=== PATIENT | male | born 1955 | race Caucasian/White ===

== ENCOUNTER → 2017-07-16 | Outpatient (CLI) | payer OTHER | LOC: HYPER 08:02 | DX: L03.116 Cellulitis of left lower limb (principal); E11.9 Type 2 diabetes mellitus without complications; I82.592 Chronic embolism and thrombosis of other specified deep vein of left lower extremity; Z87.891 Personal history of nicotine dependence ==

== ENCOUNTER → 2017-07-29 | Outpatient (CLI) | payer OTHER | LOC: HYPER 06:57 | DX: L03.116 Cellulitis of left lower limb (principal); I10 Essential (primary) hypertension; Z86.718 Personal history of other venous thrombosis and embolism; Z87.891 Personal history of nicotine dependence ==